=== PATIENT | female | born 1990 | race Caucasian/White ===

== ENCOUNTER 2017-09-19 11:36 | Outpatient (CLI) | payer BC, MEDICAID ==
[~2017-09-19] VITALS: Ht 160 cm; Wt 63.5 kg
[2017-09-19 11:58] VITALS: Ht 160 cm; Wt 63.5 kg
[2017-09-19 11:59] VITALS: BP 108/69; PULSE 106
[2017-09-19] MEDS ORDERED: PNV11TAB PO (12:00)
[2017-09-19] MEDS ORDERED: LACTATED RINGER'S 250 ML IV ONE (13:00)
[2017-09-19] MEDS ORDERED: LACTATED RINGER'S 1,000 ML IV SCH (13:00)
[2017-09-19 13:10] LABS: ADD UMIC YES; UR AMORPHOUS CRYSTAL MODERATE /HPF (NONE SEEN); UR ASCORBIC ACID NEGATIVE (NEGATIVE); UR BILIRUBIN (Dip) NEGATIVE (NEGATIVE); UR BLOOD (Dip) NEGATIVE (NEGATIVE); UR CLARITY CLOUDY (CLEAR); UR COLOR YELLOW (YELLOW); UR GLUCOSE (Dip) NEGATIVE (NEGATIVE); UR KETONES (Dip) NEGATIVE (NEGATIVE); UR LEUKOCYTE ESTERASE (Dip) NEGATIVE Leu/ul (NEGATIVE); UR NITRITE (Dip) NEGATIVE (NEGATIVE); UR RBC 0 /HPF (0-5); UR SPECIFIC GRAVITY (Dip) 1.012 (1.003-1.030); UR SQUAMOUS EPITHELIAL CELL FEW /HPF (FEW); UR TOTAL PROTEIN (Dip) NEGATIVE (NEGATIVE); UR UROBILINOGEN (Dip) NEGATIVE (NEGATIVE)
--- NOTE | 2017-09-19 13:15 | RADRPT ---
PROCEDURE: CERVICAL LENGTH ULTRASOUND CLINICAL INDICATION: Pre-term labor. TECHNIQUE: Trans-vaginal imaging of the cervical canal was performed utilizing spencer-scale imaging. Sagittal and transverse images were obtained. Trans-abdominal images were also obtained. The luciano ges were reviewed on a PACS workstation. COMPARISON: None. FINDINGS: The cervix is closed with a length of 5.5 cm. There is a single live intrauterine . heart rate is 150 beats per minute. Position is cephalic and placenta is posterior, grade 1. IMPRESSION: 1. Cervical length measures 5.5 cm. RPTAT: HFN .Martín Donald MD, MD Date Time Electronically viewed and signed by .Martín Donald MD, MD on 09/19/2017 13:15 .N/
--- NOTE | 2017-09-19 14:40 | TRIAGE ---
OB Triage Datetime Report Generated by CPN: 09/19/2017 14:40 Datetime: 09/19/2017 14:12 Stage of : OB Triage Heart Rate FHR Baseline Rate: 155 Monitor Mode: External US Datetime: 09/19/2017 14:00 Monitor Mode: External Resting Tone [place]: Relaxed Contraction Comments: STATES FEELS BETTER, HASN'T FELT ANY CRAMPING IN OVER 30 MINUTES Comments: OFF DUE TO GESTATIONAL AGE Pain Assessment Pain Scale: 2 Pain Presence: Intermittent Pain Type: Cramping Pain Location: Abdomen Pain Goal: 3 Pain Relief Measures: Comfort Measures Datetime: 09/19/2017 13:06 Labor Evaluation Frequency: X1 Monitor Mode: External Duration (sec)2399: 50 Pattern: Normal: <= 5 Contractions in 10 Minutes Resting Tone [place]: Relaxed Comments: OFF DUE TO GESTATIONAL AGE Pain Assessment Pain Scale: 3 Pain Presence: Intermittent Pain Type: Cramping Pain Location: Abdomen Pain Goal: 3 Pain Relief Measures: Comfort Measures Datetime: 09/19/2017 12:19 Stage of : OB Triage Datetime: 09/19/2017 11:53 Stage of : OB Triage Assessment Type: Triage Maternal Assessment Level of Consciousness: Fully Conscious DTR's/Clonus: DTRs 2+; No Clonus Headache: Denies Blurred Vision: No Respiratory Effort: Unlabored; Regular Rhythm; Equal Expansion Breath Sounds, Left: Clear and Equal Breath Sounds, Right: Clear and Equal Nausea/Vomiting: Denies RUQ Epigastric Pain: Denies Facial Edema: None Temperature Route: Axillary Fall Risk Assessment History of Falling: (0) No Secondary Diagnosis: (0) No Ambulatory Aid: (0) Bedrest/Nurse Assist IV Therapy: (0) No Gait: (0) Normal/Bedrest/Immobile Mental Status: (0) Oriented to Own Ability Fall Score: 0 Fall Risk Score Definition: No Risk: No action required Monitor Mode: External Resting Tone [place]: Relaxed Heart Rate FHR Baseline Rate: 145 Monitor Mode: External US Variability: Moderate 6-25 bpm Decelerations: None Category: Category I Pain Assessment Pain Scale: 5 Pain Presence: Intermittent Pain Type: Cramping Pain Location: Abdomen Pain Goal: 3 Pain Relief Measures: Comfort Measures Datetime: 09/19/2017 11:51 Time of Arrival: 09/19/2017 11:35 EGA: 24.5 Arrived By: Ambulatory Arrived From: Home Chief Complaint: C/O CRAMPING THIS AM, DENIES BLEEDING OR LEAKING OF FLUID Movement: Present Contractions: Irregular Rupture of Membranes: Denies Vaginal Bleeding: None Vaginal Discharge: Denies Recent Sexual Intercouse: Yes Abdominal Trauma: Not Applicable Patient Complaints: Cramping Time Provider Notified: 09/19/2017 12:19 Provider Notified: SAMIRA Initial Plan: MONITOR, U/A, CL
--- NOTE | 2017-09-19 16:49 | QN ---
Documentation Comment ipu 24 weeks co of cx vss exam wnl a/p iup 24 weeks false labor dc home NEFTALI HOGAN MD Sep 19, 2017 16:49
== END 2017-09-19 14:20 | disposition home or self-care (01) ==
LOC: L-D 11:36 → OBT 11:36
PROVIDERS: ATTEND Obstetrics & Gynecology
DX: O62.9 Abnormality of forces of labor, unspecified (principal); Z3A.24 24 weeks gestation of pregnancy
CPT/HCPCS: 36415; 76817; 81001; 96360; 96361; J7120; Z7500; G0463

== ENCOUNTER 2017-12-17 13:18 | Outpatient (CLI) | END 2017-12-17 15:35 | disposition home or self-care (01) ==

== ENCOUNTER 2017-12-24 10:57 | Outpatient (CLI) | END 2017-12-24 13:50 | disposition home or self-care (01) ==

== ENCOUNTER 2017-12-27 14:24 | Outpatient (CLI) | END 2017-12-27 16:50 | disposition home or self-care (01) ==

== ENCOUNTER 2017-12-28 08:17 | Inpatient (IN) | END 2018-01-03 14:53 | disposition home or self-care (01) | DRG 766 ==